=== PATIENT | female | born 1965 | race African-American/Black ===

== ENCOUNTER 2020-06-25 10:02 | Outpatient (CLI) | payer BC, SELFPAY ==
[2020-06-25 11:46] LABS: Creatinine Urine 313.9 mg/dL
[2020-06-25 12:35] LABS: Alanine Aminotransferase 25 U/L (4-35); Albumin Level 4.3 g/dL (3.5-5.1); Alkaline Phosphatase 88 U/L (38-126); Anion Gap 9 mmol/L (8-16); Aspartate Amino Transferase 28 U/L (14-36); Bilirubin,Total 0.9 mg/dL (0.2-1.3); Blood Urea Nitrogen 14 mg/dL (7-17); Calcium 8.7 mg/dL (8.4-10.2); Carbon Dioxide 24 mmol/L (22-30); Chloride 103 mmol/L (98-107); Cholesterol 187 mg/dL (0-200); Estimated Glomerular Filt Rate > 60; Glucose 201 mg/dL (65-105); LDL Cholesterol Direct < 60 mg/dL; Potassium 4.3 mmol/L (3.4-5.0); Sodium 136 mmol/L (137-145)
[2020-06-25 12:52] LABS: Triglycerides 765 mg/dL (<150)
[2020-06-25 13:20] LABS: Free T4 Free Thyroxine Reflex 0.78 ng/dL (0.78-2.19)
[2020-06-25 13:31] LABS: Microalbumin Urine Random > 1140.0 mg/L (0-16.7)
[2020-06-25 14:28] LABS: Total Triiodothyronine (T3) 1.32 NG/ML (0.97-1.69)
== END 2020-06-25 10:03 | disposition home or self-care (01) ==
LOC: ANHLAB 10:09
PROVIDERS: PCP Physician Assistant
DX: E11.29 Type 2 diabetes mellitus with other diabetic kidney complication (principal); E11.65 Type 2 diabetes mellitus with hyperglycemia
CPT/HCPCS: 36415; 80053; 80061; 82043; 82607; 84439; 84443; 84480

== ENCOUNTER 2020-09-29 09:26 | Outpatient (CLI) | payer BC, SELFPAY ==
[2020-09-29 10:51] LABS: Cholesterol 244 mg/dL (0-200); Glucose 213 mg/dL (65-105); HDL Direct 47 mg/dL; Triglycerides 347 mg/dL (<150); Uric Acid 8.8 mg/dL (2.5-7.5)
[2020-09-29 11:02] LABS: LDL Cholesterol Direct 133 mg/dL
[2020-09-29 11:09] LABS: Free T4 Free Thyroxine 0.94 ng/mL (0.78-2.19)
[2020-10-04 03:11] LABS: Thyroid Peroxidase Antibodies <1 IU/mL (<9)
== END 2020-09-29 09:27 | disposition home or self-care (01) ==
PROVIDERS: PCP Physician Assistant; Referring Provider Physician Assistant; Visit Provider Internal Medicine Endocrinology, Diabetes & Metabolism
DX: E11.65 Type 2 diabetes mellitus with hyperglycemia (principal)
CPT/HCPCS: 36415; 80061; 82947; 83036; 84439; 84443; 84550; 86376

== ENCOUNTER 2021-04-13 10:28 | Outpatient (CLI) | payer BC, SELFPAY ==
[2021-04-13 11:22] LABS: Cholesterol 252 mg/dL (0-200); HDL Direct 65 mg/dL; Triglycerides 330 mg/dL (<150)
[2021-04-13 11:23] LABS: Hemoglobin A1C 8.4 % (<5.7)
[2021-04-13 11:24] LABS: Alanine Aminotransferase 15 U/L (4-35); Albumin Level 4.3 g/dL (3.5-5.1); Alkaline Phosphatase 55 U/L (38-126); Anion Gap 11 mmol/L (8-16); Aspartate Amino Transferase 29 U/L (14-36); Bilirubin,Total 0.4 mg/dL (0.2-1.3); Blood Urea Nitrogen 20 mg/dL (7-17); Calcium 9.8 mg/dL (8.4-10.2); Carbon Dioxide 26 mmol/L (22-30); Chloride 106 mmol/L (98-107); Estimated Glomerular Filt Rate 35; Glucose 134 mg/dL (65-105); Potassium 4.5 mmol/L (3.4-5.0); Sodium 143 mmol/L (137-145); Uric Acid 3.5 mg/dL (2.5-7.5)
[2021-04-13 11:34] LABS: LDL Cholesterol Direct 100 mg/dL
== END 2021-04-13 10:29 | disposition home or self-care (01) ==
PROVIDERS: PCP Physician Assistant; Visit Provider Internal Medicine Endocrinology, Diabetes & Metabolism
DX: E11.65 Type 2 diabetes mellitus with hyperglycemia (principal)
CPT/HCPCS: 36415; 80053; 80061; 83036; 84550

== ENCOUNTER 2021-05-12 07:49 | Outpatient (CLI) | payer BC, SELFPAY ==
[2021-05-12 12:46] LABS: Hemoglobin A1C 8.8 % (<5.7)
[2021-05-12 12:58] LABS: Cholesterol 245 mg/dL (0-200); HDL Direct 47 mg/dL; LDL Cholesterol Direct 77 mg/dL
[2021-05-12 13:12] LABS: Creatinine Urine 56.5 mg/dL
[2021-05-12 13:41] LABS: Triglycerides 579 mg/dL (<150)
[2021-05-12 17:08] LABS: Microalbumin Urine Random > 1140.0 mg/L (0-16.7)
== END 2021-05-12 07:50 | disposition home or self-care (01) ==
LOC: ANHWCLAB 07:56
PROVIDERS: PCP Physician Assistant; Visit Provider Physician Assistant
DX: R53.83 Other fatigue (principal); E11.59 Type 2 diabetes mellitus with other circulatory complications; E78.1 Pure hyperglyceridemia; I10 Essential (primary) hypertension; E11.69 Type 2 diabetes mellitus with other specified complication
CPT/HCPCS: 36415; 80061; 82043; 83036; 84443

== ENCOUNTER 2021-09-09 14:04 | Outpatient (CLI) | payer BC, SELFPAY ==
[2021-09-09 16:57] LABS: Alanine Aminotransferase 19 U/L (4-35); Albumin Level 4.4 g/dL (3.5-5.1); Alkaline Phosphatase 65 U/L (38-126); Anion Gap 11 mmol/L (8-16); Aspartate Amino Transferase 27 U/L (14-36); Bilirubin,Total 0.5 mg/dL (0.2-1.3); Blood Urea Nitrogen 23 mg/dL (7-17); Carbon Dioxide 27 mmol/L (22-30); Chloride 104 mmol/L (98-107); Cholesterol 206 mg/dL (0-200); Estimated Glomerular Filt Rate 40; Glucose 153 mg/dL (65-110); HDL Direct 47 mg/dL; Potassium 4.7 mmol/L (3.4-5.0); Sodium 142 mmol/L (137-145); Triglycerides 478 mg/dL (<150)
[2021-09-09 17:08] LABS: LDL Cholesterol Direct 88 mg/dL
[2021-09-09 17:10] LABS: Free T4 Free Thyroxine 0.86 ng/mL (0.78-2.19)
[2021-09-09 17:23] LABS: Creatinine Urine 123.6 mg/dL
[2021-09-09 17:29] LABS: MALB Creatinine Ratio 153.7 mg/g (0-30); Microalbumin Urine Random > 190.0 mg/L (0-16.7)
== END 2021-09-09 14:05 | disposition home or self-care (01) ==
LOC: ANHWCLAB 14:07
PROVIDERS: PCP Physician Assistant; Visit Provider Nurse Practitioner Family
DX: E11.65 Type 2 diabetes mellitus with hyperglycemia (principal); R79.89 Other specified abnormal findings of blood chemistry; R80.9 Proteinuria, unspecified; I10 Essential (primary) hypertension; E78.1 Pure hyperglyceridemia; Z79.4 Long term (current) use of insulin
CPT/HCPCS: 36415; 80053; 80061; 82043; 84439; 84443; 84480

== ENCOUNTER 2022-04-06 09:30 | Outpatient (CLI) | payer BC, SELFPAY ==
[2022-04-06 17:25] LABS: Creatinine Urine 93.3 mg/dL
[2022-04-06 18:18] LABS: Hemoglobin A1C 8.4 % (<5.7)
[2022-04-06 19:43] LABS: Alanine Aminotransferase 18 U/L (6-35); Albumin Level 4.3 g/dL (3.5-5.1); Alkaline Phosphatase 87 U/L (38-126); Anion Gap 7 mmol/L (8-16); Aspartate Amino Transferase 78 U/L (14-36); Bilirubin,Total 0.4 mg/dL (0.2-1.3); Blood Urea Nitrogen 22 mg/dL (7-17); Calcium 7.9 mg/dL (8.4-10.2); Carbon Dioxide 24 mmol/L (22-30); Chloride 107 mmol/L (98-107); Estimated Glomerular Filt Rate 38; Glucose 161 mg/dL (65-110); Potassium 4.7 mmol/L (3.4-5.0); Sodium 138 mmol/L (137-145); Uric Acid 11.2 mg/dL (2.5-7.5)
[2022-04-06 19:45] LABS: Microalbumin Urine Random > 1140.0 mg/L (0-16.7)
[2022-04-07 04:10] LABS: Vitamin D 25 Hydroxy < 12.8 ng/mL
[2022-04-07 10:45] LABS: LDL Cholesterol Direct 102 mg/dL
[2022-04-07 14:05] LABS: Cholesterol 315 mg/dL (0-200); Triglycerides 732 mg/dL (<150)
== END 2022-04-06 09:31 | disposition home or self-care (01) ==
PROVIDERS: PCP Internal Medicine; Visit Provider Nurse Practitioner
DX: E11.65 Type 2 diabetes mellitus with hyperglycemia (principal); Z13.21 Encounter for screening for nutritional disorder; E78.1 Pure hyperglyceridemia; M10.9 Gout, unspecified
CPT/HCPCS: 36415; 80053; 80061; 82043; 82306; 83036; 84550

== ENCOUNTER 2022-10-11 11:39 | Outpatient (CLI) | payer BC, SELFPAY ==
[2022-10-11 13:36] LABS: Vitamin D 25 Hydroxy 19.8 ng/mL
[2022-10-11 13:39] LABS: Creatinine Urine 136.7 mg/dL
[2022-10-11 13:41] LABS: Alanine Aminotransferase 20 U/L (6-35); Albumin Level 4.2 g/dL (3.5-5.1); Alkaline Phosphatase 113 U/L (38-126); Anion Gap 12 mmol/L (8-16); Aspartate Amino Transferase 24 U/L (14-36); Bilirubin,Total 0.5 mg/dL (0.2-1.3); Blood Urea Nitrogen 32 mg/dL (7-17); Calcium 8.5 mg/dL (8.4-10.2); Carbon Dioxide 25 mmol/L (22-30); Chloride 100 mmol/L (98-107); Cholesterol 275 mg/dL (0-200); Estimated Glomerular Filt Rate 29; Glucose 298 mg/dL (65-110); HDL Direct 39 mg/dL; Potassium 4.8 mmol/L (3.4-5.0); Sodium 137 mmol/L (137-145)
[2022-10-11 13:57] LABS: Hemoglobin A1C 12.1 % (<5.7)
[2022-10-11 16:47] LABS: LDL Cholesterol Direct < 30 mg/dL; Triglycerides 2455 mg/dL (<150)
[2022-10-11 17:14] LABS: Microalbumin Urine Random > 1140.0 mg/L (0-16.7)
== END 2022-10-11 11:40 | disposition home or self-care (01) ==
LOC: ANHWCLAB 11:41
PROVIDERS: PCP Internal Medicine; Visit Provider Internal Medicine Endocrinology, Diabetes & Metabolism
DX: M10.9 Gout, unspecified (principal); Z13.21 Encounter for screening for nutritional disorder; E11.65 Type 2 diabetes mellitus with hyperglycemia; E78.1 Pure hyperglyceridemia; I51.9 Heart disease, unspecified; R80.9 Proteinuria, unspecified; I10 Essential (primary) hypertension
CPT/HCPCS: 36415; 80053; 80061; 82043; 82306; 82607; 83036; 84443; 84550

== ENCOUNTER 2022-12-21 14:03 | Outpatient (CLI) | payer BC, SELFPAY ==
[2022-12-21 19:04] LABS: Creatinine Urine 72.5 mg/dL; Total Protein Urine Random 123 mg/dL
[2022-12-21 19:11] LABS: Albumin Level 3.8 g/dL (3.5-5.1); Anion Gap 17 mmol/L (8-16); Blood Urea Nitrogen 31 mg/dL (7-17); Calcium 8.1 mg/dL (8.4-10.2); Carbon Dioxide 14 mmol/L (22-30); Chloride 101 mmol/L (98-107); Eosinophil Urine None Seen % (None Seen); Estimated Glomerular Filt Rate 22; Glucose 410 mg/dL (65-110); Phosphorus 5.5 mg/dL (2.5-4.5); Potassium 5.2 mmol/L (3.4-5.0); Sodium 132 mmol/L (137-145)
[2022-12-21 19:43] LABS: Complement C3 74 mg/dL (88-165)
[2022-12-25 20:51] LABS: Anti Glomerular Basement Memb <1.0 AI (<1.0)
[2022-12-26 20:06] LABS: Creatinine, Random Urine 65 mg/dL (20-275); Total Protein/Creatinine Ratio 1431 mg/g creat (24-184)
== END 2022-12-21 14:04 | disposition home or self-care (01) ==
LOC: ANHWCLAB 14:07
PROVIDERS: PCP Internal Medicine; Visit Provider Internal Medicine Nephrology
DX: E11.65 Type 2 diabetes mellitus with hyperglycemia (principal); R80.9 Proteinuria, unspecified; I12.9 Hypertensive chronic kidney disease with stage 1 through stage 4 chronic kidney disease, or unspecified chronic kidney disease; N18.4 Chronic kidney disease, stage 4 (severe)
CPT/HCPCS: 36415; 80069; 82570; 83520; 84155; 84156; 84165; 84166; 85999; 86036; 86038; 86160; 86225

== ENCOUNTER 2023-01-04 13:32 | Outpatient (CLI) | payer BC, SELFPAY ==
[2023-01-06 21:22] LABS: ANCA Screen Negative (Negative)
== END 2023-01-04 13:33 | disposition home or self-care (01) ==
LOC: ANHLAB 13:33
PROVIDERS: PCP Internal Medicine; Visit Provider Internal Medicine Nephrology
DX: E11.65 Type 2 diabetes mellitus with hyperglycemia (principal); I12.9 Hypertensive chronic kidney disease with stage 1 through stage 4 chronic kidney disease, or unspecified chronic kidney disease; N18.4 Chronic kidney disease, stage 4 (severe); R80.9 Proteinuria, unspecified
CPT/HCPCS: 36415; 84155; 84165; 86036; 86038; 86225

== ENCOUNTER 2023-01-11 08:20 | Outpatient (CLI) | payer BC, SELFPAY ==
--- NOTE | ~2023-01-11 | US_ITS ---
EXAMINATION: US renal BI DATE: 01/11/2023 08:56 INDICATION: N18.4 - Chronic kidney disease, stage 4 (severe) TECHNIQUE: Multiple grayscale and Doppler ultrasound images of the kidneys were obtained. COMPARISON: None. FINDINGS: The right kidney measures 10.2 x 5.9 x 5.6 cm. The left kidney measures 10.2 x 5.6 x 4.7 cm. The kidn eys demonstrate increased parenchymal echogenicity. There is no hydronephrosis. The bladder is normal . IMPRESSION: Medical renal disease. Reviewed, dictated and finalized at location [facility] IMPRESSION: Medical renal disease.
== END 2023-01-11 08:21 | disposition home or self-care (01) ==
PROVIDERS: PCP Internal Medicine; Visit Provider Internal Medicine Nephrology
DX: N18.4 Chronic kidney disease, stage 4 (severe) (principal)
CPT/HCPCS: 76775